=== PATIENT | male | born 1985 | race Caucasian/White ===

== ENCOUNTER 2020-07-24 07:52 | Inpatient (IN) | payer BC, MEDICAID ==
[~2020-07-24 07:52] MED LIST: Acetaminophen 500 MG Tab PO ONE; Celecoxib 200 MG Cap PO ONE; Scopolamine 1.5 MG Transdermal Patch TOP ONE; cefOXitin 2 GM Vial ONE
[2020-07-24] MEDS ORDERED: Rocuronium 50 MG/5 ML Vial ONE (07:53)
[2020-07-24] MEDS ORDERED: Neostigmine Methylsulfate 1 MG/ML 5 ML Syringe ONE (07:53)
[2020-07-24] MEDS ORDERED: Glycopyrrolate 0.2 MG/ML 5 ML MDV ONE (07:53)
[2020-07-24] MEDS ORDERED: Ondansetron 4 MG/2 ML SDV ONE (07:53)
[2020-07-24] MEDS ORDERED: Succinylcholine 200 MG/10 ML MDV ONE (07:53)
[2020-07-24] MEDS ORDERED: Dexamethasone 4 MG/ML SDV ONE (07:53)
[2020-07-24] MEDS ORDERED: Propofol 200 MG/20 ML SDV ONE ×2 (07:53→11:00)
[2020-07-24] MEDS ORDERED: fentaNYL 250 MCG/5 ML SDV ONE ×3 (07:53→10:59)
[2020-07-24] MEDS ORDERED: Lactated Ringers 1,000 ML ONE (08:01)
[2020-07-24] MEDS ORDERED: cefOXitin 2 GM in Sodium Chloride 0.9% 50 ML IV ONE (08:45)
[2020-07-24] MEDS ORDERED: Ketamine 500 MG/5 ML MDV IV SCH (09:00)
[2020-07-24] MEDS ORDERED: Ketamine 50 MG in Sodium Chloride 0.9% 49.5 ML IV SCH (09:00)
[2020-07-24] MEDS ORDERED: Magnesium Sulfate 9 GM in Sodium Chloride 0.9% 250 ML IV ONE (09:30)
[2020-07-24] MEDS ORDERED: Dextrose 5%-Lactated Ringers 1,000 ML IV SCH (09:30)
[2020-07-24] MEDS ORDERED: Labetalol 20 MG/4 ML Syringe ONE (11:54)
[2020-07-24] MEDS ORDERED: Magnesium Sulfate 4.9 GM in Sodium Chloride 0.9% 250 ML IV ONE (13:00)
[2020-07-24] MEDS ORDERED: Ondansetron 4 MG/2 ML SDV IVPUSH ONE (13:04)
[2020-07-24] MEDS ORDERED: Glucagon,Human Recombinant 1 MG Vial IM PRN (13:06)
[2020-07-24] MEDS ORDERED: 50% Dextrose in Water 50 ML Syringe IVPUSH PRN (13:06)
[2020-07-24] MEDS ORDERED: Insulin Lispro 100 Unit/ML 3 ML KwikPen SUBCUT ONE (13:15)
[2020-07-24] MEDS: HYDROmorphone 1 MG/ML Syringe IV PRN ×2 (13:54→15:53)
[2020-07-24] MEDS ORDERED: Metoclopramide 10 MG/2 ML SDV IVPUSH PRN (14:00)
[2020-07-24] MEDS ORDERED: Albuterol/Ipratropium 3.0-0.5 MG/3 ML Neb Soln INH PRN (14:00)
[2020-07-24] MEDS ORDERED: Labetalol 20 MG/4 ML Syringe IVPUSH PRN (14:00)
[2020-07-24] MEDS ORDERED: Ondansetron 4 MG/2 ML SDV IVPUSH PRN (14:00)
[2020-07-24] MEDS ORDERED: Acetaminophen 500 MG Tab PO PRN (14:00)
[2020-07-24] MEDS ORDERED: Lactated Ringers 1,000 ML IV SCH (14:00)
[2020-07-24] MEDS ORDERED: diphenhydrAMINE 50 MG/ML SDV IVPUSH PRN (14:00)
[2020-07-24] MEDS ORDERED: HYDROmorphone 0.5 MG/0.5 ML Syringe IVPUSH PRN (14:00)
[2020-07-24] MEDS ORDERED: hydrOXYzine HCL 100 MG/2 ML SDV IM PRN (14:00)
[2020-07-24] MEDS ORDERED: ALPRAZolam 0.5 MG Tab PO PRN (14:02)
[2020-07-24] MEDS: Dextrose 5%-Lactated Ringers 1,000 ML IV SCH ×2 (14:55→21:58)
[2020-07-24] MEDS: cefOXitin 2 GM in Sodium Chloride 0.9% 50 ML IV SCH ×2 (15:50→21:03)
[2020-07-24] MEDS ORDERED: MVI, Adult with Vitamin K 10 ML, Thiamine 200 MG, Zinc/Copper/Manganese/Selenium 1 ML i... IV SCH ×4 (16:00)
[2020-07-24] MEDS ORDERED: Pantoprazole 40 MG Vial IVPUSH SCH (16:00)
[2020-07-24] MEDS: Insulin Lispro 100 Unit/ML 3 ML KwikPen SUBCUT PRN ×2 (16:39→22:17)
[2020-07-24] MEDS: Heparin Sodium 5,000 Units/ML Vial SUBCUT SCH ×2 (16:40→22:59)
[2020-07-24] MEDS: Acetaminophen 500 MG Tab PO SCH ×2 (16:40→22:59)
[2020-07-24] MEDS: oxyCODONE 5 MG Tab PO PRN (18:26)
[2020-07-24] MEDS: Pregabalin 50 MG Cap PO SCH (21:03)
[2020-07-24] MEDS: atorvaSTATin 20 MG Tab PO SCH (21:03)
[2020-07-24] MEDS: Cyclobenzaprine 10 MG Tab PO PRN (22:56)
[2020-07-24] MEDS ORDERED: Calcium Gluconate 10% 1 GM/10 ML SDV IVPUSH PRN (23:59)
[2020-07-25] MEDS ORDERED: Iopamidol 612 MG/ML 50 ML SDV PO ONE (04:01)
[2020-07-25] MEDS: cefOXitin 2 GM in Sodium Chloride 0.9% 50 ML IV SCH ×3 (04:09→15:29)
[2020-07-25] MEDS: Insulin Lispro 100 Unit/ML 3 ML KwikPen SUBCUT PRN ×3 (04:15→17:02)
[2020-07-25] MEDS: oxyCODONE 5 MG Tab PO PRN ×2 (05:37→21:14)
[2020-07-25] MEDS ORDERED: Ondansetron 4 MG Tab.DIS PO PRN (08:17)
[2020-07-25] MEDS ORDERED: hydrOXYzine HCl 25 MG Tab PO PRN (08:20)
[2020-07-25] MEDS: Escitalopram 20 MG Tab PO SCH (08:59)
[2020-07-25] MEDS: Metoprolol Succinate 50 MG Tab.ER PO SCH (08:59)
[2020-07-25] MEDS: Aspirin 81 MG Tab.EC PO SCH (08:59)
[2020-07-25] MEDS: Heparin Sodium 5,000 Units/ML Vial SUBCUT SCH ×2 (08:59→15:29)
[2020-07-25] MEDS: metFORMIN 500 MG Tab PO SCH ×2 (09:00→17:01)
[2020-07-25] MEDS: Acetaminophen 500 MG Tab PO SCH ×2 (09:01→15:30)
[2020-07-25] MEDS: Lisinopril 20 MG Tab PO SCH (09:01)
[2020-07-25] MEDS: Celecoxib 200 MG Cap PO SCH ×2 (09:01→21:16)
[2020-07-25] MEDS: Hydrochlorothiazide 25 MG Tab PO SCH (09:02)
[2020-07-25] MEDS: Cyclobenzaprine 10 MG Tab PO PRN (09:09)
[2020-07-25] MEDS: Pregabalin 50 MG Cap PO SCH ×2 (09:09→21:19)
[2020-07-25] MEDS: SCOPOLAMINE PATCH CHECK TOP SCH (09:10)
--- NOTE | 2020-07-25 09:14 | CR ---
[facility] HISTORY: Postbariatric surgery FINDINGS: Patient swallowed water-soluble contrast. Upright views of the abdomen show no evidence of extravasation or obstruction. There is a surgical drain in the left upper quadrant IMPRESSION: Status post bariatric surgery No extravasation or obstruction seen
--- NOTE | 2020-07-25 12:41 | PN ---
DATE OF SERVICE: 07/25/2020 SUBJECTIVE: Sharath is postoperative day #1, upper GI was normal. He reports his pain is controlled with the energy protocol. Vital signs have been stable. Oral intake on step 1 was 2358 and urine output was independent +500 measured. EPHRAIM drain put out 190 mL of a light pink drainage. Vital signs have been stable. He has been up, ambulating. Blood sugar since surgery have been 244, 336, 314, and 294. REVIEW OF SYSTEMS: Remainder of review of systems negative for any pertinent positives and negatives. OBJECTIVE: GENERAL: Sharath Montenegro is a 34-year-old male. He is alert and orientated. VITAL SIGNS: TPR is 96.8, 103, 16, blood pressure 148/94. HEENT: Negative. NECK: Supple. HEART: Regular rate and rhythm. LUNGS: Clear. ABDOMEN: Dressings dry and intact. EPHRAIM drain intact. Abdominal binder is on. EXTREMITIES: Without peripheral edema. ASSESSMENT: Laparoscopic sleeve gastrectomy, unable to do duodenal switch due to hepatomegaly and Paul-Cut needle liver biopsy for morbid obesity and marked hepatomegaly. Date of surgery, 07/24/2020. Surgeon: Kaleb Hyde MD. PLAN: 1. Saline lock IV start. 2. Metformin 1000 mg b.i.d. 3. Atarax 25 mg q.4 hours p.r.n. pain. 4. Zofran ODT 4 mg sublingual every 4 hours. Dressing off, may shower. 5. Communication order for 3 med cups every 20 minutes or 3 per hour, record at bedside. 6. May shower. 7. Diet, diabetic. Educator consult Katina is available to see patient. The patient was given a FreeStyle Hermelinda 2 and to check blood sugars when he goes home 4 times a day. Right now, we will continue with some metformin. Lantus may be needed to be added in the morning. A note is written in discharge summary that he is to call Katina Piper at [phone] on Tuesday07/28/2020, to let her know what blood sugars are running. Yuli Johnson PA-C /[id number]
[2020-07-25] MEDS ORDERED: Pantoprazole 40 MG Delayed-Release Granules 1 Packet PO SCH (16:00)
[2020-07-25] MEDS: atorvaSTATin 20 MG Tab PO SCH (21:16)
[2020-07-26] MEDS: Heparin Sodium 5,000 Units/ML Vial SUBCUT SCH ×2 (00:26→09:21)
[2020-07-26] MEDS: Acetaminophen 500 MG Tab PO SCH ×2 (00:26→09:15)
[2020-07-26] MEDS ORDERED: Ketorolac 30 MG/ML SDV IVPUSH ONE (03:34)
[2020-07-26] MEDS ORDERED: Magnesium Hydroxide 400 MG/5 ML Susp 30 ML Cup PO ONE (09:00)
[2020-07-26] MEDS ORDERED: Cyanocobalamin (Vitamin B12) 1,000 MCG/ML SDV IM ONE (09:00)
[2020-07-26] MEDS: metFORMIN 500 MG Tab PO SCH (09:13)
[2020-07-26] MEDS: Celecoxib 200 MG Cap PO SCH (09:16)
[2020-07-26] MEDS: Aspirin 81 MG Tab.EC PO SCH (09:17)
[2020-07-26] MEDS: Lisinopril 20 MG Tab PO SCH (09:19)
[2020-07-26] MEDS: Hydrochlorothiazide 25 MG Tab PO SCH (09:19)
[2020-07-26] MEDS: Escitalopram 20 MG Tab PO SCH (09:35)
[2020-07-26] MEDS: Pregabalin 50 MG Cap PO SCH (09:36)
[2020-07-26] MEDS: Metoprolol Succinate 50 MG Tab.ER PO SCH (09:37)
[2020-07-26] MEDS: SCOPOLAMINE PATCH CHECK TOP SCH (10:25)
--- NOTE | 2020-07-28 09:36 | DISCH ---
FINAL DIAGNOSES: 1. Morbid obesity. 2. Extreme hepatomegaly precluding formation of duodeno-ileostomy. SECONDARY DIAGNOSES: 1. Type 2 diabetes mellitus. 2. History of seizure disorder. 3. History of hypertension. 4. Sleep apnea. 5. History of pulmonary embolism. 6. History of anxiety and depression. 7. History of attention-deficit hyperactivity disorder. OPERATIVE PROCEDURE: Done on 07/24/2020, diagnostic laparoscopy with: 1. Laparoscopic sleeve gastrectomy. 2. Paul-Cut needle liver biopsies. SUMMARY: This is a 34-year-old presenting with severe morbid obesity with a BMI in the 70 range and a preoperative weight of 482 pounds. Clinically, he has a cohost of significant comorbidities as mentioned above. On the day of admission, the patient underwent a diagnostic laparoscopy. The intent was to proceed with a duodenal switch which involved both the sleeve gastrectomy and duodeno-ileostomy. His liver was strikingly enlarged to the extent that the duodenum was not actually visible. Given this, we did, as often is the case with males with obesity is do the sleeve gastrectomy on the day of admission and then sometime at any point beyond 3 months postoperatively, we can then continue our duodenal switch by adding the duodeno-ileostomy. At that point, the liver would have shortened quite a bit. Preoperatively, the patient was not running blood sugars. Postoperatively, they were initially running quite high and we could add metformin 1000 mg b.i.d. to his medications. With this, the most recent blood pressures are in the 140 to 150 range. He was hesitant to do Accu-Cheks, so he was hooked up with a Dexcom, and he will be recording his blood sugars to bring that report in with his appointment and also contacted in 2 days, this coming Tuesday, by the hematology nurse educator to see how we are doing with the blood sugars at that time. Otherwise, he is tolerating the liquid diet which he will stay on for 1 month postoperatively. Again, Yuli Johnson will be at [facility]] on 08/04/2020. He will be staying on his usual medications other than we will add the metformin 1000 mg p.o. b.i.d., oxycodone 5 mg p.o. q.6 hours p.r.n. pain #10, Atarax 50 mg p.o. q.6 hours p.r.n. pain, and he will be instructed at this point to take all of his medications intact. /[id number]
--- NOTE | 2020-07-30 16:05 | OR ---
DATE OF PROCEDURE: 07/24/2020 SURGEON: Kaleb Hyde MD PREOPERATIVE DIAGNOSIS: Morbid obesity. POSTOPERATIVE DIAGNOSES: 1. Morbid obesity. 2. Striking hepatomegaly obscuring view of duodenum precluding formation of duodenal ileostomy. OPERATIVE PROCEDURES: Diagnostic laparoscopy with: 1. Laparoscopic sleeve gastrectomy (12784). 2. Paul-Cut needle liver biopsy (14205). ANESTHESIA: General. BOOTH SUPERVISOR: Yuli Johnson PA-C INDICATIONS FOR PROCEDURE: This is a 34-year-old with massive obesity, presenting for a planned laparoscopic duodenal switch. Potential risks of the procedure including bleeding, infection, leaks from various GI tract closures, as well as possibility of cardiopulmonary, septic, or hemorrhagic complications leading to were discussed, especially with his body habitus and male sex, there is a somewhat higher risk of needing to do a staged procedure. We are proceeding with the sleeve gastrectomy today and subsequently completing the second phase with the duodenal ileostomy somewhere in the 3 to 6 months postoperative phase after some initial weight loss. DETAILS OF PROCEDURE: The patient was taken to the operating room and placed in a supine position. After general endotracheal anesthesia was induced, a Lord catheter was inserted, and the patient was converted to a lithotomy position. The abdomen was then prepped and draped. 20 cm inferior and 5 cm left of the xiphoid process, a transverse incision was made and peritoneal cavity entered direct vision with an Optiview trocar, inflated to 15 mmHg pressure with CO2. Laparoscope was reinserted. No underlying trocar insertion site injuries were seen. Bilateral subcostal transversus abdominis plane blocks were placed. Six additional trocars were placed across the upper and mid abdomen. The patient was noted to have reasonably mobile small bowel, but the liver was very strikingly enlarged and this actually precluded more than a minimal visualization of the inferior aspect of the first portion of the duodenum which precluded the formation of the duodenal ileostomy at this time. Paul-Cut needle biopsy was obtained from the left lobe of the liver. Minimal bleeding from the biopsy sites was controlled with electrocautery. The liver was then retracted anteriorly and additional 5 mm trocar needed to be placed for liver retraction. At that point, the omentum was divided away from the greater curvature of the stomach beginning 2 cm proximal to the pylorus and then extending up along the area of the short gastric vessels including the highest and posterior short gastric vessels. There may have been some element of a hiatal hernia, but this was not able to be well visualized because of the liver volume as well. Once this has been completed, then the initial markings for the stapling across the antrum and then underneath the incisura angularis were made on the stomach wall with electrocautery and the 1st two firings of the DELLA stapler with DELLA black loads. A 32-Swazi suction catheter was then placed orally per Anesthesia along the lesser curvature of the stomach and thereafter suction applied. The remainder of the gastrectomy resection was accomplished with series of reinforced black and purple DELLA loads. At that point, the gastrectomy appeared to be satisfactorily completed. The staple line was then reinforced with fibrin sealant and omentum placed along the length of the staple line as well. This came up without needing additional sutures with fibrin sealant holding it more or less in place. This gastric specimen was then retrieved through the left lateral trocar site and a single Philip-Acosta drain was placed through the left lateral trocar site up to the area around the gastroesophageal junction and into the splenic fossa. Trocars were then sequentially removed and the peritoneal cavity deflated. Incisions were closed with some 4-0 Vicryl skin stitch as was used to fix the drain. The patient was taken to the recovery room in satisfactory condition. Physician advertising assistant manager, Yuli Johnson, played an essential role in assisting in this case, helping to position the patient, retract structures as needed, as well as suturing and cutting sutures when indicated. Her presence improved patient safety and decreased operative time. Klaeb Hyde MD /[id number]
== END 2020-07-26 10:50 | disposition home or self-care (01) | DRG 403 ==
LOC: JP.SDSSCHI 07:52 → JP.SDS 07:52 → EDSTATUS 08:15 → JP.SDS 13:40 → JP.2SS 13:40 → JP.MS 17:00
PROVIDERS: ADMIT Surgery; ATTEND Surgery
PROC: 0DB64Z3 Excision of Stomach, Percutaneous Endoscopic Approach, Vertical (ICD-10-PCS; principal; 2020-07-24)
PROC: 0FB24ZX Excision of Left Lobe Liver, Percutaneous Endoscopic Approach, Diagnostic (ICD-10-PCS; 2020-07-24)
DX: E66.01 Morbid (severe) obesity due to excess calories (principal); R16.0 Hepatomegaly, not elsewhere classified; G40.909 Epilepsy, unspecified, not intractable, without status epilepticus; G47.30 Sleep apnea, unspecified; I10 Essential (primary) hypertension; F41.9 Anxiety disorder, unspecified; F32.9 Major depressive disorder, single episode, unspecified; F98.8 Other specified behavioral and emotional disorders with onset usually occurring in childhood and adolescence; J45.909 Unspecified asthma, uncomplicated; E53.8 Deficiency of other specified B group vitamins; E11.42 Type 2 diabetes mellitus with diabetic polyneuropathy; K12.1 Other forms of stomatitis; Z86.711 Personal history of pulmonary embolism; Z68.45 Body mass index [BMI] 70 or greater, adult; Z88.2 Allergy status to sulfonamides; Z88.8 Allergy status to other drugs, medicaments and biological substances; Z87.891 Personal history of nicotine dependence
CPT/HCPCS: 36415; 74240; 74240-26; 80053; 82962; 83036; 83735; 83880; 84100; 85027; 86850; 86900; 86901; 88307; 88313; 88342; 93005; 93010; 94762; A9270-GY; C9113; J0171; J0330; J0694; J1100; J1170; J1644; J1815; J2405; J2704; J2710; J2765; J2795; J3010; J3411; J3420; J3475; J3490; J7050; J7120; J7121; Q9967

== ENCOUNTER 2020-09-20 05:38 | Day surgery (SDC) | payer BC, MEDICAID ==
[~2020-09-20 05:38] MED LIST changes: -Acetaminophen 500 MG Tab PO ONE; -Celecoxib 200 MG Cap PO ONE; +Cyanocobalamin (Vitamin B12) 1,000 MCG/ML SDV IM ONE; +Glycopyrrolate 0.2 MG/ML 2 ML SDV IVPUSH ONE; +Lactated Ringers 1,000 ML IV ONE; +MVI, Adult with Vitamin K 10 ML, Thiamine 200 MG, Zinc/Copper/Manganese/Selenium 1 ML i... IV ONE; +Midazolam 1 MG/ML 2 ML SDV ONE; +Propofol 200 MG/20 ML SDV ONE; -Scopolamine 1.5 MG Transdermal Patch TOP ONE; -cefOXitin 2 GM Vial ONE; +fentaNYL 100 MCG/2 ML SDV ONE
[2020-09-20] MEDS ORDERED: Cyanocobalamin (Vitamin B12) 1,000 MCG/ML SDV IM ONE (07:00)
[2020-09-20] MEDS ORDERED: Lactated Ringers 1,000 ML IV ONE (07:00)
[2020-09-20] MEDS ORDERED: Glycopyrrolate 0.2 MG/ML 2 ML SDV IVPUSH ONE (07:30)
[2020-09-20] MEDS ORDERED: Propofol 200 MG/20 ML SDV ONE (07:30)
[2020-09-20] MEDS ORDERED: fentaNYL 100 MCG/2 ML SDV ONE (07:31)
[2020-09-20] MEDS ORDERED: Midazolam 1 MG/ML 2 ML SDV ONE (07:31)
[2020-09-20] MEDS ORDERED: MVI, Adult with Vitamin K 10 ML, Thiamine 200 MG, Zinc/Copper/Manganese/Selenium 1 ML i... IV ONE ×4 (08:30)
--- NOTE | 2020-09-21 23:03 | OR ---
DATE OF PROCEDURE: 09/20/2020 SURGEON: Kaleb Hyde MD PREOPERATIVE DIAGNOSIS: Burping and epigastric discomfort, status post sleeve gastrectomy. POSTOPERATIVE DIAGNOSIS: Normal upper gastrointestinal endoscopic examination, status post sleeve gastrectomy. ANESTHESIA: IV sedation. INDICATION FOR PROCEDURE: The patient is status post a first-stage duodenal switch i.e., sleeve gastrectomy and presents with quite a bit in the way of excess burping as well as some epigastric discomfort. To evaluate the current status of sleeve gastrectomy, the patient is to undergo upper GI endoscopy with biopsies and/or dilation as indicated. Potential risks including bleeding and perforation were discussed and the patient wishes to proceed. DETAILS OF PROCEDURE: The patient was taken to the operating room and placed in a left lateral decubitus position. IV sedation was administered, after which the upper GI endoscope was passed orally through the length of the esophagus to the esophagogastric junction through the length of the sleeve gastrectomy and into the proximal duodenum. Overall the findings appeared to be relatively normal. There was some slight bowel retention consistent with possible element of gastroparesis which the patient may be suffering from. He does report that prior to his sleeve gastrectomy he did have quite a bit of burping and this may be a learned behavior. At any rate other than the small amount of bowel retention within the sleeve gastrectomy, no significant abnormalities were noted. The scope was then withdrawn. The procedure then concluded. The patient's original intent was to have a duodenal switch and due to massive hepatomegaly this was stopped with a sleeve gastrectomy i.e., first stage duodenal switch, and at this point, the plan will be to proceed with a second stage i.e., duodenal ileostomy on 10/07/2020. He has now lost in the range of 15 pounds, and with another 3 weeks, should be in good position for completion of the duodenal ileostomy. Kaleb Hyde MD /[id number]
== END 2020-09-20 09:50 | disposition home or self-care (01) ==
LOC: JP.SDS 05:38
PROVIDERS: ATTEND Surgery
DX: R14.2 Eructation (principal); R10.13 Epigastric pain; I10 Essential (primary) hypertension; E11.9 Type 2 diabetes mellitus without complications; E66.01 Morbid (severe) obesity due to excess calories; Z88.8 Allergy status to other drugs, medicaments and biological substances; Z98.84 Bariatric surgery status; G47.33 Obstructive sleep apnea (adult) (pediatric); Z68.43 Body mass index [BMI] 50.0-59.9, adult
CPT/HCPCS: 43235; J2250; J2704; J3010; J3411; J3420; J3490; J7120

== ENCOUNTER 2020-10-07 07:52 | Inpatient (IN) | payer BC, MEDICAID ==
[~2020-10-07 07:52] MED LIST changes: +Acetaminophen 500 MG Tab PO ONE; +Celecoxib 200 MG Cap PO ONE; -Cyanocobalamin (Vitamin B12) 1,000 MCG/ML SDV IM ONE; +Dexamethasone 4 MG/ML SDV ONE; -Glycopyrrolate 0.2 MG/ML 2 ML SDV IVPUSH ONE; +Glycopyrrolate 0.2 MG/ML 5 ML MDV ONE; -Lactated Ringers 1,000 ML IV ONE; -MVI, Adult with Vitamin K 10 ML, Thiamine 200 MG, Zinc/Copper/Manganese/Selenium 1 ML i... IV ONE; -Midazolam 1 MG/ML 2 ML SDV ONE; +Neostigmine Methylsulfate 1 MG/ML 5 ML Syringe ONE; +Ondansetron 4 MG/2 ML SDV ONE; +Rocuronium 50 MG/5 ML Vial ONE; +Scopolamine 1.5 MG Transdermal Patch TOP ONE; +Succinylcholine 200 MG/10 ML MDV ONE; +cefOXitin 2 GM Vial ONE; -fentaNYL 100 MCG/2 ML SDV ONE; +fentaNYL 250 MCG/5 ML SDV ONE
[2020-10-07] MEDS ORDERED: Dextrose 5%-Lactated Ringers 1,000 ML IV SCH ×2 (08:15→15:00)
[2020-10-07] MEDS ORDERED: Pregabalin 50 MG Cap PO ONE (08:20)
[2020-10-07] MEDS ORDERED: SODIUM CHLORIDE 0.9% IV ONE (09:00)
[2020-10-07] MEDS ORDERED: Magnesium Sulfate 4.5 GM in Sodium Chloride 0.9% 100 ML IV SCH (09:00)
[2020-10-07] MEDS ORDERED: Ketamine 50 MG in Sodium Chloride 0.9% 49.5 ML IV SCH (09:00)
[2020-10-07] MEDS ORDERED: Ketamine 500 MG/5 ML MDV IV SCH (09:00)
[2020-10-07] MEDS ORDERED: MAGNESIUM SULFATE IV ONE (09:00)
[2020-10-07] MEDS: cefOXitin 2 GM in Sodium Chloride 0.9% 50 ML IV ONE ×2 (10:25→15:28)
[2020-10-07] MEDS ORDERED: Lactated Ringers 1,000 ML ONE (11:10)
[2020-10-07] MEDS ORDERED: fentaNYL 250 MCG/5 ML SDV ONE (11:11)
[2020-10-07] MEDS ORDERED: Rocuronium 50 MG/5 ML Vial ONE (11:12)
[2020-10-07] MEDS ORDERED: fentaNYL 100 MCG/2 ML SDV ONE (13:17)
[2020-10-07] MEDS ORDERED: Glucagon,Human Recombinant 1 MG Vial IM PRN ×2 (14:01→15:00)
[2020-10-07] MEDS ORDERED: 50% Dextrose in Water 50 ML Syringe IVPUSH PRN ×2 (14:01→15:00)
[2020-10-07] MEDS ORDERED: hydrOXYzine HCL 100 MG/2 ML SDV IM ONE (14:03)
[2020-10-07] MEDS ORDERED: fentaNYL 100 MCG/2 ML SDV IVPUSH ONE (14:03)
[2020-10-07] MEDS ORDERED: Insulin Lispro 100 Unit/ML 3 ML KwikPen SUBCUT ONE (14:30)
[2020-10-07] MEDS ORDERED: Cyclobenzaprine 10 MG Tab PO PRN (14:47)
[2020-10-07] MEDS ORDERED: ALPRAZolam 0.5 MG Tab PO PRN (14:56)
[2020-10-07] MEDS ORDERED: Metoclopramide 10 MG/2 ML SDV IVPUSH PRN (15:00)
[2020-10-07] MEDS ORDERED: Labetalol 20 MG/4 ML Syringe IVPUSH PRN (15:00)
[2020-10-07] MEDS ORDERED: HYDROmorphone 0.5 MG/0.5 ML Syringe IVPUSH PRN (15:00)
[2020-10-07] MEDS ORDERED: diphenhydrAMINE 50 MG/ML SDV IVPUSH PRN (15:00)
[2020-10-07] MEDS ORDERED: Albuterol/Ipratropium 3.0-0.5 MG/3 ML Neb Soln INH PRN (15:00)
[2020-10-07] MEDS ORDERED: hydrOXYzine HCL 100 MG/2 ML SDV IM PRN (15:00)
[2020-10-07] MEDS ORDERED: Lactated Ringers 1,000 ML IV SCH (15:00)
[2020-10-07] MEDS ORDERED: Acetaminophen 500 MG Tab PO PRN (15:00)
[2020-10-07] MEDS ORDERED: Calcium Gluconate 10% 1 GM/10 ML SDV IVPUSH PRN (15:00)
[2020-10-07] MEDS ORDERED: Ondansetron 4 MG/2 ML SDV IVPUSH PRN (15:00)
[2020-10-07] MEDS ORDERED: HYDROmorphone 1 MG/ML Syringe IV PRN (15:00)
[2020-10-07] MEDS ORDERED: Pantoprazole 40 MG Vial IVPUSH SCH (16:00)
[2020-10-07] MEDS ORDERED: MVI, Adult with Vitamin K 10 ML, Thiamine 200 MG, Zinc/Copper/Manganese/Selenium 1 ML i... IV SCH ×4 (16:00)
[2020-10-07] MEDS: oxyCODONE 5 MG Tab PO PRN (16:46)
[2020-10-07] MEDS: Acetaminophen 500 MG Tab PO SCH ×2 (16:47→23:48)
[2020-10-07] MEDS: cefOXitin 2 GM in Sodium Chloride 0.9% 50 ML IV SCH ×2 (16:49→21:22)
[2020-10-07] MEDS: Heparin Sodium 5,000 Units/ML Vial SUBCUT SCH ×2 (17:17→23:48)
[2020-10-07] MEDS: Insulin Lispro 100 Unit/ML 3 ML KwikPen SUBCUT PRN ×2 (17:25→22:28)
[2020-10-07] MEDS: Pregabalin 50 MG Cap PO SCH (21:21)
[2020-10-07] MEDS: atorvaSTATin 20 MG Tab PO SCH (21:22)
[2020-10-08] MEDS ORDERED: Iopamidol 612 MG/ML 50 ML SDV PO STA (02:53)
[2020-10-08] MEDS: cefOXitin 2 GM in Sodium Chloride 0.9% 50 ML IV SCH ×2 (03:56→10:30)
[2020-10-08] MEDS: Insulin Lispro 100 Unit/ML 3 ML KwikPen SUBCUT PRN (04:12)
[2020-10-08] MEDS: oxyCODONE 5 MG Tab PO PRN ×2 (04:15→14:06)
[2020-10-08] MEDS ORDERED: Calcium Carbonate 500 MG Tab.Chew PO PRN (07:21)
[2020-10-08] MEDS: Heparin Sodium 5,000 Units/ML Vial SUBCUT SCH ×2 (07:32→15:42)
[2020-10-08] MEDS: Acetaminophen 500 MG Tab PO SCH ×2 (07:32→15:42)
[2020-10-08] MEDS ORDERED: Lactated Ringers 1,000 ML IV SCH (07:48)
[2020-10-08] MEDS ORDERED: Ondansetron 4 MG Tab.DIS PO PRN (07:51)
[2020-10-08] MEDS: Metoprolol Succinate 50 MG Tab.ER PO SCH (08:20)
[2020-10-08] MEDS: Pregabalin 50 MG Cap PO SCH ×2 (08:20→20:21)
[2020-10-08] MEDS: Aspirin 81 MG Tab.EC PO SCH (08:20)
[2020-10-08] MEDS: Escitalopram 20 MG Tab PO SCH (08:20)
[2020-10-08] MEDS: Celecoxib 200 MG Cap PO SCH ×2 (08:20→20:21)
--- NOTE | 2020-10-08 09:30 | CR ---
[facility] HISTORY: Postbariatric surgery FINDINGS: Patient swallowed water-soluble contrast. Upright views of the abdomen show no evidence of extravasation or obstruction. There is a surgical drain in the mid abdomen. IMPRESSION: Status post bariatric surgery No extravasation or obstruction seen
[2020-10-08] MEDS: SCOPOLAMINE PATCH CHECK TOP SCH (10:15)
--- NOTE | 2020-10-08 10:20 | PN ---
DATE OF SERVICE: 10/08/2020 SUBJECTIVE: Sharath is postoperative day #1 following a second step up duodenal switch. He had a normal upper GI this morning. Oral intake 1650. Urine output over 700. EPHRAIM drain put out 60 mL of a light red drainage. Sharath is sitting up in the chair. He reports he is currently having no pain. REVIEW OF SYSTEMS: Remainder of review of systems negative for any pertinent positives and negatives. OBJECTIVE: GENERAL: Sharath Montenegro is a pleasant 34-year-old male. He is alert, orientated. VITAL SIGNS: TPR 95.8, 88, 16, blood pressure 122/72. HEENT: Negative. NECK: Supple. HEART: Regular rate and rhythm. LUNGS: Clear. ABDOMEN: Dressings dry and intact. EPHRAIM drain as above. EXTREMITIES: Without peripheral edema. ASSESSMENT: Laparoscopic duodenal switch, second stage of lap duodenal ileostomy. Date of procedure: 10/07/2019. Surgeon: Kaleb Hyde MD. PLAN: 1. Decrease IV to 60 mL per hour of lactated Ringer's. 2. Discontinue IV D5 LR. 3. Step 2 gastric bypass diet with no cereal for 1 month. 4. May shower. 5. Zofran ODT 4 mg q.4 hours p.r.n. nausea, vomiting. 6. Continue to ambulate and use of incentive spirometer. 7. We will evaluate p.r.n. or in a.m. Yuli Johnson PA-C /[id number]
[2020-10-08] MEDS ORDERED: diphenhydrAMINE 25 MG Cap PO PRN (13:28)
[2020-10-08] MEDS ORDERED: MVI, Adult with Vitamin K 10 ML, Thiamine 200 MG, Zinc/Copper/Manganese/Selenium 1 ML i... IV SCH ×4 (16:00)
[2020-10-08] MEDS ORDERED: Pantoprazole 40 MG Tab.CR PO SCH (16:00)
[2020-10-08] MEDS: Amoxicillin/Clavulanate K 875-125 MG Tab PO SCH (18:23)
[2020-10-08] MEDS: atorvaSTATin 20 MG Tab PO SCH (20:21)
[2020-10-09] MEDS: Acetaminophen 500 MG Tab PO SCH ×2 (00:29→07:48)
[2020-10-09] MEDS: Heparin Sodium 5,000 Units/ML Vial SUBCUT SCH ×2 (00:29→07:48)
[2020-10-09] MEDS: oxyCODONE 5 MG Tab PO PRN ×2 (04:45→14:58)
[2020-10-09] MEDS: Amoxicillin/Clavulanate K 875-125 MG Tab PO SCH ×2 (05:25→06:00)
[2020-10-09] MEDS: Celecoxib 200 MG Cap PO SCH ×2 (07:49→08:03)
[2020-10-09] MEDS: Aspirin 81 MG Tab.EC PO SCH ×2 (07:50→08:03)
[2020-10-09] MEDS: Escitalopram 20 MG Tab PO SCH ×2 (07:51→08:03)
[2020-10-09] MEDS: Cyanocobalamin (Vitamin B12) 1,000 MCG/ML SDV IM ONE ×2 (07:51→08:05)
[2020-10-09] MEDS: Metoprolol Succinate 50 MG Tab.ER PO SCH ×2 (07:54→08:04)
[2020-10-09] MEDS: SCOPOLAMINE PATCH CHECK TOP SCH (08:03)
[2020-10-09] MEDS: Pregabalin 50 MG Cap PO SCH (08:10)
--- NOTE | 2020-10-09 12:57 | DISCH ---
ADMISSION DIAGNOSES: 1. Morbid obesity, BMI 57. 2. Status post sleeve gastrectomy. 3. Severe obstructive sleep apnea. 4. Type 2 diabetes mellitus. 5. Anxiety and depression. DISCHARGE DIAGNOSES: Laparoscopic duodenal switch, second stage of duodenal ileostomy. Date of procedure: 10/07/2020. Surgeon: Kaleb Hyde MD. HISTORY: Sharath Montenegro is a 34-year-old male who had the first stage of duodenal switch. After weight loss with the gastric sleeve, he presented to have the second stage of the duodenal switch. After preoperative evaluation and discussion of possible risks and possible complications, he wished to proceed with surgical procedure. HOSPITAL COURSE: Sharath had his surgery on 10/07/2020. His upper GI was normal and he was started on step 2 gastric bypass diet. Blood sugars were monitored, and on admission, blood sugar was 170, and on operative day, readings were 287, 246. On postoperative day #1, 203, 173, 287, 246. On 10/08/2020, blood sugars were 203, 173, and 125. He received no metformin. Sharath was started on a step 2 gastric bypass diet with no cereal. He had dietary instruction of vitamin B12 1000 mcg IM injection and received adequate dietary instruction. He was able to be discharged to home on postoperative day #2. PHYSICAL EXAMINATION: GENERAL: Sharath Montenegro is a pleasant 34-year-old male. VITAL SIGNS: Height is 6 feet, weight 420 pounds, BMI 57. TPR 96.5, 78, 18, blood pressure 105/70. HEENT: Negative. NECK: Supple. HEART: Regular rate and rhythm. LUNGS: Clear. ABDOMEN: He has 10 trocar sites. These are healing and sutures are intact. EPHRAIM drain will be removed prior to discharge. EXTREMITIES: Without peripheral edema. DISPOSITION: Discharged to home. CONDITION: Stable and improving. HOME MEDICATIONS: 1. Augmentin 875 mg 1 tablet p.o. q.12 hours #10, to split and crush pills. 2. Celebrex 200 mg p.o. b.i.d. #28. 3. Oxycodone 5 mg p.o. q.6 hours p.r.n. pain, #20. 4. Acetaminophen 1000 mg every 6 hours orally for pain. 5. He is to resume his home medications;. a. Lipitor 20 mg p.o. bedtime. b. Lyrica 50 mg p.o. b.i.d. c. Protonix 40 mg p.o. daily. d. Toprol-XL 200 mg p.o. daily. e. Lisinopril/hydrochlorothiazide 20/25 mg 1 daily/. f. Levsin 0.125 mg p.o. q.4 hours p.r.n. esophageal spasm. g. Lexapro 40 mg p.o. daily. h. Flexeril 10 mg p.o. daily p.r.n. muscle spasms. i. Aspirin 81 mg p.o. daily. j. Xanax 1 mg p.o. bedtime p.r.n. DIET: Step 2 gastric bypass diet with no cereal until 11/05/2020. FOLLOWUP: Appointment with Yuli Johnson PA-C, on 10/16/2020 at 10 a.m. ACTIVITY: No lifting greater than 10 pounds for 2 weeks. OTHER ACTIVITY: Walk 6 times daily inside your home. Driving: Do not drive for 1 week. DISCHARGE INSTRUCTIONS: Shower/bathing: May shower. Notify provider if any fever, chills, night sweats, drainage, nausea, or vomiting. SPECIAL INSTRUCTION: To keep operative site clean and dry. OTHER SPECIAL INSTRUCTION: 1. Use incentive spirometer 10 times every hour while awake. 2. Check blood sugars twice a day, fasting in the morning and 1 before bed. Bring record of blood sugar readings to clinic appointments. /[id number]
[2020-10-09] MEDS ORDERED: Amoxicillin/Clavulanate K 875-125 MG Tab PO SCH (18:00)
--- NOTE | 2020-10-13 10:35 | OR ---
DATE OF PROCEDURE: 10/07/2020 SURGEON: Kaleb Hyde MD PREOPERATIVE DIAGNOSIS: Morbid obesity, status post initial phase of the staged duodenal switch (sleeve gastrectomy). POSTOPERATIVE DIAGNOSIS: Morbid obesity, status post initial phase of the staged duodenal switch (sleeve gastrectomy). OPERATIVE PROCEDURE: Diagnostic laparoscopy with formation of second stage laparoscopic duodenal switch (laparoscopic duodenal ileostomy) (90027). ANESTHESIA: General. TITLE COORDINATOR: Yuli Johnson PA-C and JV Aviles. INDICATIONS FOR PROCEDURE: This is a 34-year-old male status post an initial stage of the duodenal switch consisting of sleeve gastrectomy several weeks ago. He is now down 50 pounds and is to undergo a completion of the duodenal switch consisting of laparoscopic duodenal ileostomy. Potential risks of the procedure including bleeding, infection, possible leaks from anastomosis as well as possibility of cardiopulmonary, septic, or hemorrhagic complications leading to were discussed, and the patient wishes to proceed. DETAILS OF PROCEDURE: The patient was taken to the operating room and placed in a supine position. After general endotracheal anesthesia was induced, a Lord catheter was inserted, and the patient was placed in a lithotomy position and the abdomen was then prepped and draped. Beginning 20 cm inferior and 5 cm left of the xiphoid process, a transverse incision was made and peritoneal cavity entered under direct vision with an Optiview trocar. Following this, peritoneal cavity was inflated to 15 mmHg pressure of CO2. No underlying trocar insertion site injuries were seen. The patient's abdominal wall at this point was still very quite immobile and eventually multiple additional trocars were placed across the upper mid abdomen. The initial evaluation did confirm adequate mobility of the small bowel up to 300 cm proximal to the ileocecal valve where it had been mapped out at that point. The liver also had decreased in volume quite significantly making exposure of the duodenum at this point quite easy whereas at the original procedure was not adequately visible due to an extremely large liver. At this point, the greater omentum from the distal most antrum was divided and then continued across the pylorus 4 cm distal to the pylorus. The duodenum at that level was divided with a DELLA reinforced purple load and further mobilized with some additional DELLA firings of the lesser omental tissue just above the duodenum, care taken to avoid injury to the pancreaticoduodenal artery coming from the hepatic artery so as to maintain good blood supply to the approximately divided duodenum. At this point, the additional sutures between the small bowel 300 cm proximal to the ileocecal valve and inferior and superior aspects of the divided proximal duodenum were placed. Duodenotomy followed by opening of the small bowel were then made and internal firing of the Endo-DELLA 30 mm stapler was accomplished, thus initiating the duodenal ileostomy. The common opening was then elevated with 3 sutures placed, one on each end and then one in the middle with 3-0 Vicryl stitch specifically at bowel wall upward and this was then closed off with a DELLA purple load. Good closure was then clinically evident. The purple staple line was then reinforced at seromuscular level with some 3-0 Vicryl seromuscular stitch along with fibrin sealant. The gastroscope was then placed, which showed air coming out of the pylorus into the duodenum and through the duodenal ileostomy indicating patency of that anastomosis. It was being flooded with antibiotic-containing saline solution. No leaks were identified. Some additional fibrin sealant was then placed and sutures were then placed between the afferent limb up to the area of the antrum to create an angulation there to facilitate the passage of the stomach contents within the duodenum and then into efferent limb of the duodenal ileostomy. Of note, the small bowel at this point was still sufficiently immobile that it was felt that a formation of Andrew-en-Y component of the duodenal ileostomy would be contraindicated as this would put the patient at high risk for a leak, and this could be completed at a further time postoperatively if necessary, although unlikely to be so. The areas of the anastomosis were irrigated with antibiotic-containing saline solution. Single Philip-Acosta drain was taken out through the left lateral trocar site and positioned adjacent to the duodenal ileostomy. Trocars were then sequentially removed, peritoneal cavity deflated. The incisions were closed with 4-0 Vicryl skin stitch and drains affixed with 4-0 Vicryl stitch as well. The patient was taken to the recovery room in satisfactory condition. Physician transition assistant, Yuli Johnson, played an essential role in assisting in this case, helping to position the patient, retract structures as needed, as well as suturing and cutting sutures when indicated. Her presence improved patient safety and decreased the operative time. Kaleb Hyde MD /[id number]
== END 2020-10-09 15:15 | disposition home or self-care (01) | DRG 403 ==
LOC: JP.SDS 07:52 → JP.MS 13:50
PROVIDERS: ADMIT Surgery; ATTEND Surgery
PROC: 0D194ZB Bypass Duodenum to Ileum, Percutaneous Endoscopic Approach (ICD-10-PCS; principal; 2020-10-07)
DX: E66.01 Morbid (severe) obesity due to excess calories (principal); G47.33 Obstructive sleep apnea (adult) (pediatric); F41.9 Anxiety disorder, unspecified; F32.9 Major depressive disorder, single episode, unspecified; I10 Essential (primary) hypertension; F90.9 Attention-deficit hyperactivity disorder, unspecified type; K21.9 Gastro-esophageal reflux disease without esophagitis; K42.9 Umbilical hernia without obstruction or gangrene; E11.42 Type 2 diabetes mellitus with diabetic polyneuropathy; R56.9 Unspecified convulsions; Z68.43 Body mass index [BMI] 50.0-59.9, adult; Z86.711 Personal history of pulmonary embolism; Z88.2 Allergy status to sulfonamides; Z88.8 Allergy status to other drugs, medicaments and biological substances; Z87.891 Personal history of nicotine dependence; Z98.84 Bariatric surgery status
CPT/HCPCS: 36415; 74240; 74240-26; 82962; 84100; A9270-GY; C9113; J0171; J0330; J0694; J1100; J1170; J1644; J1815; J2405; J2704; J2710; J2795; J3010; J3410; J3411; J3420; J3475; J3490; J7050; J7120; J7121; Q9967

== ENCOUNTER 2023-03-25 06:29 | Day surgery (SDC) | payer BC, OTHER ==
[2023-03-25] MEDS ORDERED: Dextrose 5%-Lactated Ringers 1,000 ML IV SCH (07:00)
[2023-03-25] MEDS ORDERED: fentaNYL 50 MCG/ML SDV ONE (07:08)
[2023-03-25] MEDS ORDERED: Propofol 200 MG/20 ML SDV ONE (07:08)
[2023-03-25] MEDS ORDERED: Midazolam 1 MG/ML 2 ML SDV ONE (07:08)
== END 2023-03-25 10:07 | disposition home or self-care (01) ==
LOC: JP.SDS 06:29
PROVIDERS: ATTEND Surgery
DX: K21.00 Gastro-esophageal reflux disease with esophagitis, without bleeding (principal); K29.60 Other gastritis without bleeding; K44.9 Diaphragmatic hernia without obstruction or gangrene; U07.1 COVID-19; Z98.84 Bariatric surgery status; Z88.2 Allergy status to sulfonamides; Z88.8 Allergy status to other drugs, medicaments and biological substances
CPT/HCPCS: 43235; 87635; J2250; J2704; J3010; J7121; U0002

== ENCOUNTER 2023-06-06 04:53 | Day surgery (SDC) | payer BC, OTHER ==
[2023-06-06] MEDS ORDERED: Lactated Ringers 1,000 ML IV ONE (06:15)
[2023-06-06] MEDS ORDERED: Cyanocobalamin (Vitamin B12) 1,000 MCG/ML SDV IM ONE (06:15)
[2023-06-06] MEDS ORDERED: fentaNYL 100 MCG/2 ML SDV ONE (07:05)
[2023-06-06] MEDS ORDERED: Propofol 200 MG/20 ML SDV ONE (07:06)
[2023-06-06] MEDS ORDERED: Midazolam 1 MG/ML 2 ML SDV ONE (07:06)
[2023-06-06] MEDS ORDERED: MVI, Adult with Vitamin K 10 ML, Thiamine 200 MG, Zinc/Copper/Manganese/Selenium 1 ML i... IV ONE ×4 (07:15)
[2023-06-06] MEDS ORDERED: Glycopyrrolate 0.2 MG/ML 2 ML SDV IVPUSH ONE (07:15)
== END 2023-06-06 09:35 | disposition home or self-care (01) ==
LOC: JP.SDS 04:53
PROVIDERS: ATTEND Student in an Organized Health Care Education/Training Program
DX: K29.50 Unspecified chronic gastritis without bleeding (principal); R13.10 Dysphagia, unspecified; I10 Essential (primary) hypertension; F90.9 Attention-deficit hyperactivity disorder, unspecified type; Z88.2 Allergy status to sulfonamides; Z88.8 Allergy status to other drugs, medicaments and biological substances; Z98.84 Bariatric surgery status
CPT/HCPCS: 43239; 76000; 88305; J2250; J2704; J3010; J3411; J3420; J7120; J3490